=== PATIENT | male | born 1955 | race African-American/Black ===

== ENCOUNTER 2017-10-24 06:43 | Emergency (ER) | payer MEDICARE, MEDICAID ==
[~2017-10-24] VITALS: Ht 182.9 cm; Wt 100.0 kg
[~2017-10-24 06:43] MED LIST: ACET1TAB14; AMLO10TA80; AMLO10TA80 PO; AMLODIPINE; ASPI-1073 PO; ATOR40TA70; BENA40TA3; BENAZEPRIL; CHLO25TA2; FLOV44; FLUTICASONE PROPION; HYDR-3927 GT; HYDR-3927 PO; LORA-458 PO; LORA1TAB; LORA1TAB PO; P20 PO; PROAIR HFA INH; PSEU120T84; SIMV40TA5 PO; SITA100T11 PO; TAMS0.4C31 PO
[2017-10-24 06:50] VITALS: BP 138/94
[2017-10-24 07:38] LABS: BASOPHILS % 0.9 % (0.0-2.0); EOSINOPHILS % 1.3 % (0.0-5.0); HEMATOCRIT. 44.9 % (42.0-52.0); HEMOGLOBIN. 14.8 g/dL (14.0-18.0); LYMPHOCYTES % 26.1 % (20.0-50.0); MEAN CORPUSCULAR HEMOGLOBIN 27.5 pg (28.0-32.0); MEAN CORPUSCULAR VOLUME 83.2 fL (80.0-94.0); MEAN PLATELET VOLUME 9.1 fl (7.4-10.4); MONOCYTES % 8.4 % (2.0-8.0); NEUTROPHILS % 63.3 % (40.0-76.0); PLATELET 159 x1000/uL (130-400); RED CELL DISTRIBUTION WIDTH 15.9 % (11.6-14.6)
[2017-10-24 07:46] LABS: CHLORIDE 112 mEq/L (98-107)
[2017-10-24] MEDS ORDERED: POTASSIUM CHLORIDE 20MEQ TABLET SR PO ONE (08:45)
== END 2017-10-24 12:55 | disposition home or self-care (01) ==
LOC: ER 07:47
DX: F41.9 Anxiety disorder, unspecified (principal); R05 Cough; R45.1 Restlessness and agitation; E11.9 Type 2 diabetes mellitus without complications; E78.00 Pure hypercholesterolemia, unspecified; E87.6 Hypokalemia; F17.200 Nicotine dependence, unspecified, uncomplicated; F12.10 Cannabis abuse, uncomplicated; I10 Essential (primary) hypertension; Z79.82 Long term (current) use of aspirin; Z98.890 Other specified postprocedural states
CPT/HCPCS: 36415; 71045; 80048; 85025; 93005; 99285

== ENCOUNTER 2018-11-07 10:07 | Emergency (ER) | payer MEDICARE, MEDICAID ==
[~2018-11-07] VITALS: Ht 182.9 cm; Wt 93.7 kg
[~2018-11-07 10:07] MED LIST changes: -BENA40TA3; +BENA40TA9
[2018-11-07] MEDS ORDERED: ACETAMINOPHEN 325MG TABLET PO ONE (12:30)
[2018-11-07] MEDS ORDERED: ACETAMINOPHEN 325MG TABLET ONE (12:51)
[2018-11-07 15:02] VITALS: BP 139/92
== END 2018-11-07 15:10 | disposition home or self-care (01) ==
LOC: ER 10:07
DX: S09.8XXA Other specified injuries of head, initial encounter (principal); Y00.XXXA Assault by blunt object, initial encounter; Y93.89 Activity, other specified; Y92.096 Garden or yard of other non-institutional residence as the place of occurrence of the external cause
CPT/HCPCS: 99284

== ENCOUNTER 2019-05-24 12:14 | Emergency (ER) | payer MEDICARE, MEDICAID ==
[~2019-05-24] VITALS: Ht 182.9 cm; Wt 98.0 kg
[2019-05-24 13:19] LABS: BASOPHILS % 1.1 % (0.0-2.0); EOSINOPHILS % 1.9 % (0.0-5.0); HEMATOCRIT. 44.6 % (42.0-52.0); HEMOGLOBIN. 14.4 g/dL (14.0-18.0); LYMPHOCYTES % 29.5 % (20.0-50.0); MEAN CORPUSCULAR HEMOGLOBIN 27.3 pg (28.0-32.0); MEAN CORPUSCULAR VOLUME 84.6 fL (80.0-94.0); MEAN PLATELET VOLUME 8.9 fl (7.4-10.4); MONOCYTES % 8.5 % (2.0-8.0); PLATELET 181 x1000/uL (130-400); RED BLOOD CELL COUNT 5.27 mill/uL (4.7-6.1); RED CELL DISTRIBUTION WIDTH 15.4 % (11.6-14.6)
[2019-05-24 13:27] LABS: CHLORIDE 109 mEq/L (98-107)
[2019-05-24] MEDS ORDERED: CLONIDINE 0.1MG TABLET PO ONE (14:15)
[2019-05-24 15:45] VITALS: BP 184/98
== END 2019-05-24 16:00 | disposition home or self-care (01) ==
LOC: ER 12:45
DX: F41.0 Panic disorder [episodic paroxysmal anxiety] (principal); I10 Essential (primary) hypertension; R73.9 Hyperglycemia, unspecified
CPT/HCPCS: 36415; 71045; 84484; 93005; 99284

== ENCOUNTER 2020-07-16 03:17 | Inpatient (IN) | payer MEDICARE, MEDICAID ==
[~2020-07-16] VITALS: Ht 218.4 cm; Wt 81.6 kg
[~2020-07-16 03:17] MED LIST changes: -LORA-458 PO; +LORA10TA60 PO; +SIMV-46 PO; -SIMV40TA5 PO
[2020-07-16] MEDS ORDERED: CEFTRIAXONE 1 G PREMIX 50 ML IV ONE (03:30)
[2020-07-16] MEDS ORDERED: ALBUTEROL 6.7GM HFA INHALER ORI ONE ×3 (03:30)
[2020-07-16] MEDS ORDERED: DEXAMETHASONE 4MG/ML 1ML VIAL IV ONE (03:30)
[2020-07-16] MEDS ORDERED: AZITHROMYCIN 500 MG in DEXT 5% WATER 250 ML IV ONE (03:30)
[2020-07-16] MEDS ORDERED: ASPIRIN 325MG EC TABLET PO ONE (03:45)
[2020-07-16] MEDS ORDERED: DILTIAZEM HCL 5MG/ML 5ML VIAL IV ONE (03:45)
[2020-07-16 04:37] LABS: BG BASE EXCESS 1.7 mmol/L (-2.0-2.0); BG CARBOXYHEMOGLOBIN 1.1 % (0.5-1.5); BG DEOXYHEMOGLOBIN 1.8 % (0.0-5.0); BG FRACTION INSPIRED OXYGEN 50; BG HCO3 ACT 25.2 mmol/L (22.0-26.0); BG METHEMOGLOBIN 0.2 % (0.0-1.5); BG OXYGEN SATURATION 98.2 % (92.0-98.5); BG OXYHEMOGLOBIN 96.9 % (94.0-97.0); BG PCO2 36.1 mmHg (35.0-45.0); BG PH 7.461 (7.350-7.450); BG PO2 114.3 mmHg (75.0-100.0); BG TOTAL HEMOGLOBIN 14.9 g/dL (12.0-18.0); BG TOTAL RESPIRATORY RATE 30 b/min; BG VENT MODE MASK - BIPAP
[2020-07-16 04:43] LABS: HEMATOCRIT. 42.8 % (42.0-52.0); MEAN CORPUSCULAR HEMOGLOBIN 27.4 pg (28.0-32.0); MEAN CORPUSCULAR VOLUME 83.8 fL (80.0-94.0); MEAN PLATELET VOLUME 9.3 fl (7.4-10.4); PLATELET 121 x1000/uL (130-400); RED BLOOD CELL COUNT 5.11 mill/uL (4.7-6.1); RED CELL DISTRIBUTION WIDTH 14.9 % (11.6-14.6)
[2020-07-16 04:45] LABS: CHLORIDE 109 mEq/L (98-107)
[2020-07-16 04:47] LABS: INR 1.2; PROTHROMBIN TIME 12.1 sec (9.6-11.0)
[2020-07-16] MEDS ORDERED: POTASSIUM CHLORIDE 20MEQ TABLET SR PO ONE ×2 (05:15)
[2020-07-16] MEDS ORDERED: ENOXAPARIN 100MG/ML SYR SUBCUT ONE (05:45)
[2020-07-16 07:09] LABS: PLATELET ESTIMATE NORMAL
[2020-07-16] MEDS: LORAZEPAM 2MG/ML CPJ IV PRN (11:36)
[2020-07-16 11:40] LABS: CLARITY URINE CLEAR (CLEAR); COLOR URINE DARK YELLOW (YELLOW); KETONES URINE TRACE (NEGATIVE); LEUKOCYTE ESTERASE URINE NEGATIVE (NEGATIVE); NITRITE URINE NEGATIVE (NEGATIVE); OCCULT BLOOD URINE NEGATIVE (NEGATIVE); PROTEIN URINE 2+ (NEGATIVE); SPECIFIC GRAVITY URINE 1.034 (1.005-1.030)
[2020-07-16 17:28] LABS: T4 FREE 1.33 ng/dL (0.76-1.46)
[2020-07-16] MEDS: CLONIDINE 0.1MG TABLET PO PRN (20:12)
[2020-07-16] MEDS: ACETAMINOPHEN 325MG TABLET PO PRN (20:12)
[2020-07-17 01:11] LABS: CREATINE KINASE 118 IU/L (39-308)
[2020-07-17 01:13] LABS: CREATINE KINASE MB FRACTION < 1.0 ng/mL (0.5-3.6)
[2020-07-17] MEDS: LORAZEPAM 2MG/ML CPJ IV PRN ×3 (01:38→18:45)
[2020-07-17] MEDS: ACETAMINOPHEN 325MG TABLET PO PRN (04:28)
[2020-07-17] MEDS: CLONIDINE 0.1MG TABLET PO PRN ×2 (04:28→10:35)
[2020-07-17] MEDS: ALBUTEROL 6.7GM HFA INHALER ORI PRN (05:28)
[2020-07-17] MEDS ORDERED: CEFTRIAXONE SODIUM 1 G/VIAL ONE (06:12)
[2020-07-17] MEDS: CEFTRIAXONE 1,000 MG in DEXTROSE 5% WATER 50 ML IV SCH (06:20)
[2020-07-17 06:35] LABS: CREATINE KINASE 108 IU/L (39-308)
[2020-07-17 06:36] LABS: CREATINE KINASE MB FRACTION < 1.0 ng/mL (0.5-3.6)
[2020-07-17 07:33] LABS: BG BASE EXCESS 2.3 mmol/L (-2.0-2.0); BG DEOXYHEMOGLOBIN 5.1 % (0.0-5.0); BG HCO3 ACT 25.9 mmol/L (22.0-26.0); BG METHEMOGLOBIN 0.3 % (0.0-1.5); BG OXYGEN SATURATION 94.8 % (92.0-98.5); BG OXYHEMOGLOBIN 93.6 % (94.0-97.0); BG PCO2 36.9 mmHg (35.0-45.0); BG PH 7.464 (7.350-7.450); BG PO2 71.9 mmHg (75.0-100.0); BG SAMPLE SITE LEFT RADIAL; BG TOTAL HEMOGLOBIN 13.9 g/dL (12.0-18.0); BG VENT MODE MASK - BIPAP
[2020-07-17] MEDS ORDERED: ONDANSETRON HCL 4MG/2ML INJ IV PRN (08:15)
[2020-07-17] MEDS ORDERED: HYDROCODONE/ACETAMINOPHEN 5/325MG TABLET PO PRN (08:15)
[2020-07-17] MEDS ORDERED: DEXTROSE 50% WATER 50ML SYRINGE IV PRN ×2 (08:15)
[2020-07-17] MEDS: AZITHROMYCIN 500 MG in DEXT 5% WATER 250 ML IV SCH (09:00)
[2020-07-17] MEDS: ENOXAPARIN 40MG/0.4ML SYR SUBCUT SCH (09:30)
[2020-07-17 09:46] LABS: CHLORIDE 109 mEq/L (98-107)
[2020-07-17] MEDS: DEXAMETHASONE 10 MG/ML VIAL IV SCH (09:50)
[2020-07-17] MEDS: BLOOD SUGAR DIAGNOSTIC STRIP TEST SCH ×3 (11:30→21:30)
[2020-07-17] MEDS: INSULIN LISPRO 100 UNITS/ML SUBCUT SCH ×3 (12:00→21:40)
[2020-07-18] MEDS ORDERED: LORAZEPAM 2MG/ML CPJ IV PRN (05:00)
[2020-07-18] MEDS: CEFTRIAXONE 1,000 MG in DEXTROSE 5% WATER 50 ML IV SCH (06:00)
[2020-07-18 06:17] LABS: HEMATOCRIT. 42.3 % (42.0-52.0); HEMOGLOBIN. 13.9 g/dL (14.0-18.0); MEAN CORPUSCULAR HEMOGLOBIN 27.4 pg (28.0-32.0); MEAN CORPUSCULAR VOLUME 83.4 fL (80.0-94.0); MEAN PLATELET VOLUME 8.3 fl (7.4-10.4); PLATELET 167 x1000/uL (130-400); RED BLOOD CELL COUNT 5.07 mill/uL (4.7-6.1); RED CELL DISTRIBUTION WIDTH 14.9 % (11.6-14.6)
[2020-07-18] MEDS: LORAZEPAM 2MG/ML CPJ IV PRN ×3 (06:23→21:50)
[2020-07-18 06:25] LABS: CHLORIDE 109 mEq/L (98-107)
[2020-07-18] MEDS: BLOOD SUGAR DIAGNOSTIC STRIP TEST SCH ×4 (06:30→21:00)
[2020-07-18 06:32] LABS: PHOSPHORUS 2.2 mg/dL (2.5-4.9)
[2020-07-18 06:33] LABS: LDL CHOLESTEROL 58 mg/dL (5-100)
[2020-07-18 06:34] LABS: HDL CHOLESTEROL 37 mg/dL (40-59)
[2020-07-18 06:35] LABS: T4 FREE 1.44 ng/dL (0.76-1.46)
[2020-07-18] MEDS: INSULIN LISPRO 100 UNITS/ML SUBCUT SCH ×4 (07:00→21:00)
[2020-07-18] MEDS: ENOXAPARIN 40MG/0.4ML SYR SUBCUT SCH (09:00)
[2020-07-18] MEDS: DEXAMETHASONE 10 MG/ML VIAL IV SCH (09:00)
[2020-07-18] MEDS: AZITHROMYCIN 500 MG in DEXT 5% WATER 250 ML IV SCH (09:00)
[2020-07-18 09:20] LABS: BG BASE EXCESS 1.9 mmol/L (-2.0-2.0); BG CARBOXYHEMOGLOBIN 1.1 % (0.5-1.5); BG DEOXYHEMOGLOBIN 5.1 % (0.0-5.0); BG FRACTION INSPIRED OXYGEN 100; BG METHEMOGLOBIN 0.1 % (0.0-1.5); BG OXYGEN SATURATION 94.8 % (92.0-98.5); BG OXYHEMOGLOBIN 93.7 % (94.0-97.0); BG PCO2 38.9 mmHg (35.0-45.0); BG PH 7.443 (7.350-7.450); BG PO2 71.2 mmHg (75.0-100.0); BG SAMPLE SITE LEFT BRACHIAL; BG TOTAL HEMOGLOBIN 14.1 g/dL (12.0-18.0); BG TOTAL RESPIRATORY RATE 41 b/min; BG VENT MODE MASK - BIPAP
[2020-07-18 10:31] LABS: PLATELET ESTIMATE NORMAL
[2020-07-19] MEDS: CEFTRIAXONE 1,000 MG in DEXTROSE 5% WATER 50 ML IV SCH (05:52)
[2020-07-19] MEDS: BLOOD SUGAR DIAGNOSTIC STRIP TEST SCH ×4 (08:30→21:24)
[2020-07-19] MEDS: INSULIN LISPRO 100 UNITS/ML SUBCUT SCH ×4 (08:30→21:24)
[2020-07-19] MEDS: ENOXAPARIN 40MG/0.4ML SYR SUBCUT SCH (09:12)
[2020-07-19] MEDS: DEXAMETHASONE 10 MG/ML VIAL IV SCH (09:12)
[2020-07-19 09:26] LABS: BG BASE EXCESS 0.8 mmol/L (-2.0-2.0); BG CARBOXYHEMOGLOBIN 0.9 % (0.5-1.5); BG DEOXYHEMOGLOBIN 1.2 % (0.0-5.0); BG FRACTION INSPIRED OXYGEN 100; BG HCO3 ACT 24.8 mmol/L (22.0-26.0); BG METHEMOGLOBIN 0.3 % (0.0-1.5); BG OXYGEN SATURATION 98.8 % (92.0-98.5); BG OXYHEMOGLOBIN 97.6 % (94.0-97.0); BG PCO2 37.9 mmHg (35.0-45.0); BG PH 7.434 (7.350-7.450); BG PO2 149.6 mmHg (75.0-100.0); BG SAMPLE SITE RIGHT RADIAL; BG TOTAL HEMOGLOBIN 14.3 g/dL (12.0-18.0); BG TOTAL RESPIRATORY RATE 36 b/min; BG VENT MODE MASK - BIPAP
[2020-07-19 09:46] LABS: HEMATOCRIT. 39.9 % (42.0-52.0); HEMOGLOBIN. 13.3 g/dL (14.0-18.0); MEAN CORPUSCULAR HEMOGLOBIN 27.7 pg (28.0-32.0); MEAN CORPUSCULAR VOLUME 83.5 fL (80.0-94.0); MEAN PLATELET VOLUME 8.7 fl (7.4-10.4); PLATELET 189 x1000/uL (130-400); RED BLOOD CELL COUNT 4.78 mill/uL (4.7-6.1)
[2020-07-19] MEDS: ALBUTEROL 6.7GM HFA INHALER ORI PRN ×2 (09:50→15:56)
[2020-07-19] MEDS: AZITHROMYCIN 500 MG in DEXT 5% WATER 250 ML IV SCH (10:00)
[2020-07-19 10:38] LABS: CHLORIDE 108 mEq/L (98-107)
[2020-07-19 11:04] LABS: PLATELET ESTIMATE NORMAL
[2020-07-19] MEDS: LORAZEPAM 2MG/ML CPJ IV PRN (14:34)
[2020-07-20] MEDS: LORAZEPAM 2MG/ML CPJ IV PRN ×2 (02:46→12:38)
[2020-07-20] MEDS: CEFTRIAXONE 1,000 MG in DEXTROSE 5% WATER 50 ML IV SCH (06:28)
[2020-07-20] MEDS: BLOOD SUGAR DIAGNOSTIC STRIP TEST SCH ×4 (06:30→21:00)
[2020-07-20 06:38] LABS: BG BASE EXCESS 1.1 mmol/L (-2.0-2.0); BG CARBOXYHEMOGLOBIN 0.9 % (0.5-1.5); BG DEOXYHEMOGLOBIN 0.9 % (0.0-5.0); BG FRACTION INSPIRED OXYGEN 100; BG METHEMOGLOBIN 0.2 % (0.0-1.5); BG OXYGEN SATURATION 99.1 % (92.0-98.5); BG PCO2 37.5 mmHg (35.0-45.0); BG PH 7.442 (7.350-7.450); BG PO2 212.6 mmHg (75.0-100.0); BG SAMPLE SITE RIGHT BRACHIAL; BG TOTAL HEMOGLOBIN 14.1 g/dL (12.0-18.0); BG VENT MODE MASK - BIPAP
[2020-07-20] MEDS: ENOXAPARIN 40MG/0.4ML SYR SUBCUT SCH (09:00)
[2020-07-20] MEDS: DEXAMETHASONE 10 MG/ML VIAL IV SCH (11:19)
[2020-07-20] MEDS: AMLODIPINE 10MG TABLET PO SCH (11:20)
[2020-07-20] MEDS: AZITHROMYCIN 500 MG in DEXT 5% WATER 250 ML IV SCH (11:32)
[2020-07-20] MEDS: INSULIN LISPRO 100 UNITS/ML SUBCUT SCH (21:00)
[2020-07-20] MEDS: DEXT 5%/0.45% NACL KCL 20MEQ/L 1,000 ML IV SCH (23:49)
[2020-07-21] MEDS: LORAZEPAM 2MG/ML CPJ IV PRN (01:46)
[2020-07-21] MEDS: CLONIDINE 0.1MG TABLET PO PRN (05:02)
[2020-07-21] MEDS: INSULIN LISPRO 100 UNITS/ML SUBCUT SCH ×5 (07:00→18:35)
[2020-07-21 08:53] LABS: BG BASE EXCESS 3.7 mmol/L (-2.0-2.0); BG CARBOXYHEMOGLOBIN 0.8 % (0.5-1.5); BG DEOXYHEMOGLOBIN 1.1 % (0.0-5.0); BG FRACTION INSPIRED OXYGEN 80; BG HCO3 ACT 28.4 mmol/L (22.0-26.0); BG METHEMOGLOBIN 0.2 % (0.0-1.5); BG OXYGEN SATURATION 98.9 % (92.0-98.5); BG OXYHEMOGLOBIN 97.9 % (94.0-97.0); BG PCO2 42.8 mmHg (35.0-45.0); BG PH 7.439 (7.350-7.450); BG PO2 194.6 mmHg (75.0-100.0); BG SAMPLE SITE RIGHT BRACHIAL; BG TOTAL HEMOGLOBIN 13.5 g/dL (12.0-18.0); BG TOTAL RESPIRATORY RATE 23 b/min; BG VENT MODE MASK - BIPAP
[2020-07-21 09:10] VITALS: BP 162/104
[2020-07-21] MEDS: ENOXAPARIN 40MG/0.4ML SYR SUBCUT SCH (11:01)
[2020-07-21] MEDS: AMLODIPINE 10MG TABLET PO SCH (11:01)
[2020-07-21] MEDS: DEXAMETHASONE 10 MG/ML VIAL IV SCH (11:01)
[2020-07-21 12:00] VITALS: BP 157/96
[2020-07-21 12:15] VITALS: BP 162/104
[2020-07-21] MEDS ORDERED: PNEUMOCOCCAL 23-VAL P-SAC VAC 0.5 ML IM ONE (13:00)
[2020-07-21] MEDS: HYDRALAZINE HCL 100MG TABLET PO SCH ×2 (14:21→21:20)
[2020-07-21] MEDS: DEXT 5%/0.45% NACL KCL 20MEQ/L 1,000 ML IV SCH (14:24)
[2020-07-21 16:00] VITALS: BP 146/88
[2020-07-21 18:25] LABS: HEMATOCRIT. 42.5 % (42.0-52.0); HEMOGLOBIN. 13.5 g/dL (14.0-18.0); MEAN CORPUSCULAR HEMOGLOBIN 26.6 pg (28.0-32.0); MEAN CORPUSCULAR VOLUME 83.9 fL (80.0-94.0); MEAN PLATELET VOLUME 8.4 fl (7.4-10.4); PLATELET 150 x1000/uL (130-400); RED BLOOD CELL COUNT 5.07 mill/uL (4.7-6.1); RED CELL DISTRIBUTION WIDTH 15.2 % (11.6-14.6)
[2020-07-21 18:36] LABS: CHLORIDE 114 mEq/L (98-107)
[2020-07-21] MEDS: ACETAMINOPHEN 325MG TABLET PO PRN (18:36)
[2020-07-21 19:50] LABS: PLATELET ESTIMATE NORMAL
[2020-07-21 20:00] VITALS: BP 135/79
[2020-07-21] MEDS: LORAZEPAM 2MG/ML CPJ IM PRN (23:18)
[2020-07-22] VITALS: BP 130/86
[2020-07-22 04:00] VITALS: BP 140/79
[2020-07-22] MEDS: BLOOD SUGAR DIAGNOSTIC STRIP TEST SCH ×4 (05:55→21:06)
[2020-07-22] MEDS: HYDRALAZINE HCL 100MG TABLET PO SCH ×3 (06:01→21:47)
[2020-07-22] MEDS: DEXT 5%/0.45% NACL KCL 20MEQ/L 1,000 ML IV SCH ×2 (06:28→17:59)
[2020-07-22 08:00] VITALS: BP 137/82
[2020-07-22 09:18] LABS: BG BASE EXCESS 0.1 mmol/L (-2.0-2.0); BG CARBOXYHEMOGLOBIN 1.1 % (0.5-1.5); BG HCO3 ACT 24.2 mmol/L (22.0-26.0); BG METHEMOGLOBIN 0.3 % (0.0-1.5); BG OXYGEN SATURATION 85.8 % (92.0-98.5); BG OXYHEMOGLOBIN 84.6 % (94.0-97.0); BG PCO2 37.7 mmHg (35.0-45.0); BG PH 7.425 (7.350-7.450); BG PO2 48.3 mmHg (75.0-100.0); BG SAMPLE SITE RIGHT RADIAL; BG TOTAL HEMOGLOBIN 14.5 g/dL (12.0-18.0)
[2020-07-22] MEDS: AMLODIPINE 10MG TABLET PO SCH (17:51)
[2020-07-22] MEDS: ENOXAPARIN 40MG/0.4ML SYR SUBCUT SCH (17:51)
[2020-07-22] MEDS: DEXAMETHASONE 10 MG/ML VIAL IV SCH (17:59)
[2020-07-22 20:00] VITALS: BP 140/80
[2020-07-22] MEDS: INSULIN LISPRO 100 UNITS/ML SUBCUT SCH (21:50)
[2020-07-22] MEDS: LORAZEPAM 2MG/ML CPJ IM PRN (21:52)
[2020-07-23] VITALS: BP 150/90
[2020-07-23] MEDS: DEXT 5%/0.45% NACL KCL 20MEQ/L 1,000 ML IV SCH ×3 (01:31→22:00)
[2020-07-23 04:00] VITALS: BP 170/98
[2020-07-23] MEDS: HYDRALAZINE HCL 100MG TABLET PO SCH ×3 (06:17→22:00)
[2020-07-23] MEDS: CLONIDINE 0.1MG TABLET PO PRN (06:17)
[2020-07-23] MEDS: ACETAMINOPHEN 325MG TABLET PO PRN (06:27)
[2020-07-23] MEDS: LORAZEPAM 2MG/ML CPJ IM PRN (06:27)
[2020-07-23] MEDS: BLOOD SUGAR DIAGNOSTIC STRIP TEST SCH ×4 (06:28→21:00)
[2020-07-23] MEDS: INSULIN LISPRO 100 UNITS/ML SUBCUT SCH ×4 (06:28→22:18)
[2020-07-23 08:00] VITALS: BP 160/88
[2020-07-23] MEDS: DEXAMETHASONE 10 MG/ML VIAL IV SCH (09:00)
[2020-07-23] MEDS: AMLODIPINE 10MG TABLET PO SCH (10:14)
[2020-07-23] MEDS: ENOXAPARIN 40MG/0.4ML SYR SUBCUT SCH (10:14)
[2020-07-23 12:00] VITALS: BP 164/88
[2020-07-23] MEDS: HYDROCHLOROTHIAZIDE 25MG TABLET PO SCH (13:51)
[2020-07-23 16:00] VITALS: BP 146/90
[2020-07-23 20:00] VITALS: BP 154/98
[2020-07-24] VITALS: BP 138/89
[2020-07-24] MEDS: LORAZEPAM 2MG/ML CPJ IM PRN ×3 (00:06→23:22)
[2020-07-24] MEDS: ALBUTEROL 6.7GM HFA INHALER ORI SCH ×4 (02:44→23:22)
[2020-07-24 04:00] VITALS: BP 140/91
[2020-07-24] MEDS: DEXT 5%/0.45% NACL KCL 20MEQ/L 1,000 ML IV SCH (06:24)
[2020-07-24] MEDS: HYDRALAZINE HCL 100MG TABLET PO SCH ×3 (06:24→22:00)
[2020-07-24] MEDS: BLOOD SUGAR DIAGNOSTIC STRIP TEST SCH ×4 (07:30→21:59)
[2020-07-24 08:16] VITALS: BP 124/77
[2020-07-24] MEDS: DEXAMETHASONE 10 MG/ML VIAL IV SCH (09:01)
[2020-07-24] MEDS: ACETAMINOPHEN 325MG TABLET PO PRN (09:02)
[2020-07-24] MEDS: HYDROCHLOROTHIAZIDE 25MG TABLET PO SCH (09:02)
[2020-07-24] MEDS: ENOXAPARIN 40MG/0.4ML SYR SUBCUT SCH (09:02)
[2020-07-24] MEDS: NIFEDIPINE XL 30MG TAB PO SCH (09:03)
[2020-07-24] MEDS: INSULIN LISPRO 100 UNITS/ML SUBCUT SCH ×4 (09:04→23:23)
[2020-07-24 12:05] VITALS: BP 144/86
[2020-07-24 16:20] VITALS: BP 155/92
[2020-07-24 20:00] VITALS: BP 123/77
[2020-07-25 00:34] VITALS: BP 130/80
[2020-07-25 04:00] VITALS: BP 138/82
[2020-07-25] MEDS: HYDRALAZINE HCL 100MG TABLET PO SCH ×3 (05:20→21:54)
[2020-07-25] MEDS: ACETAMINOPHEN 325MG TABLET PO PRN ×2 (05:20→13:22)
[2020-07-25] MEDS: ALBUTEROL 6.7GM HFA INHALER ORI SCH ×4 (06:49→21:53)
[2020-07-25] MEDS: BLOOD SUGAR DIAGNOSTIC STRIP TEST SCH ×4 (07:28→21:22)
[2020-07-25 08:00] VITALS: BP 131/84
[2020-07-25] MEDS: LORAZEPAM 2MG/ML CPJ IM PRN ×2 (08:03→16:10)
[2020-07-25] MEDS: INSULIN LISPRO 100 UNITS/ML SUBCUT SCH ×4 (08:04→21:53)
[2020-07-25 08:39] LABS: BASOPHILS % 0.8 % (0.0-2.0); EOSINOPHILS % 0.6 % (0.0-5.0); HEMATOCRIT. 40.8 % (42.0-52.0); HEMOGLOBIN. 13.2 g/dL (14.0-18.0); LYMPHOCYTES % 9.5 % (20.0-50.0); MEAN CORPUSCULAR HEMOGLOBIN 26.7 pg (28.0-32.0); MEAN CORPUSCULAR VOLUME 82.4 fL (80.0-94.0); MONOCYTES % 3.1 % (2.0-8.0); PLATELET 161 x1000/uL (130-400); RED BLOOD CELL COUNT 4.95 mill/uL (4.7-6.1); RED CELL DISTRIBUTION WIDTH 15.5 % (11.6-14.6)
[2020-07-25 08:42] LABS: CHLORIDE 105 mEq/L (98-107)
[2020-07-25] MEDS: HYDROCHLOROTHIAZIDE 25MG TABLET PO SCH (09:05)
[2020-07-25] MEDS: ENOXAPARIN 40MG/0.4ML SYR SUBCUT SCH (09:06)
[2020-07-25] MEDS: NIFEDIPINE XL 30MG TAB PO SCH (09:06)
[2020-07-25] MEDS: DEXAMETHASONE 10 MG/ML VIAL IV SCH (09:06)
[2020-07-25 12:00] VITALS: BP 148/90
[2020-07-25 16:00] VITALS: BP 133/81
[2020-07-25 20:00] VITALS: BP 137/86
[2020-07-26] VITALS: BP 136/83
[2020-07-26] MEDS: ALBUTEROL 6.7GM HFA INHALER ORI SCH ×4 (00:30→18:30)
[2020-07-26 04:00] VITALS: BP 145/84
[2020-07-26] MEDS: HYDRALAZINE HCL 100MG TABLET PO SCH ×3 (05:01→22:09)
[2020-07-26] MEDS: ACETAMINOPHEN 325MG TABLET PO PRN (05:01)
[2020-07-26] MEDS: BLOOD SUGAR DIAGNOSTIC STRIP TEST SCH ×4 (06:13→21:00)
[2020-07-26] MEDS: INSULIN LISPRO 100 UNITS/ML SUBCUT SCH ×4 (06:13→22:40)
[2020-07-26 08:00] VITALS: BP 118/70
[2020-07-26] MEDS: HYDROCHLOROTHIAZIDE 25MG TABLET PO SCH (10:04)
[2020-07-26] MEDS: DEXAMETHASONE 10 MG/ML VIAL IV SCH (10:04)
[2020-07-26] MEDS: ENOXAPARIN 40MG/0.4ML SYR SUBCUT SCH (10:05)
[2020-07-26] MEDS: NIFEDIPINE XL 30MG TAB PO SCH (10:05)
[2020-07-26 12:00] VITALS: BP 141/76
[2020-07-26 16:00] VITALS: BP 107/68
[2020-07-26 20:00] VITALS: BP 143/86
[2020-07-26] MEDS: INSULIN GLARGINE UD 100 UNITS/ML SYR SUBCUT SCH (22:40)
[2020-07-27] VITALS: BP_SYST 139; BP_DIAS 82; BP_DIAS 88
[2020-07-27] MEDS: ALBUTEROL 6.7GM HFA INHALER ORI SCH ×4 (02:23→18:36)
[2020-07-27 04:00] VITALS: BP 138/89
[2020-07-27] MEDS: BLOOD SUGAR DIAGNOSTIC STRIP TEST SCH ×4 (06:27→21:46)
[2020-07-27] MEDS: HYDRALAZINE HCL 100MG TABLET PO SCH ×3 (06:28→21:38)
[2020-07-27] MEDS: INSULIN LISPRO 100 UNITS/ML SUBCUT SCH ×4 (06:33→21:34)
[2020-07-27 08:00] VITALS: BP 143/91
[2020-07-27 08:39] LABS: HEMOGLOBIN 13.9 g/dL (14.0-18.0); MEAN CORPUSCULAR HEMOGLOBIN 27.5 pg (28.0-32.0); MEAN CORPUSCULAR VOLUME 82.8 fL (80.0-94.0); PLATELET 253 x1000/uL (130-400); RED BLOOD CELL COUNT 5.08 mill/uL (4.7-6.1); RED CELL DISTRIBUTION WIDTH 15.5 % (11.6-14.6)
[2020-07-27 09:05] LABS: CHLORIDE 104 mEq/L (98-107)
[2020-07-27] MEDS: DEXAMETHASONE 10 MG/ML VIAL IV SCH (09:40)
[2020-07-27] MEDS: ENOXAPARIN 40MG/0.4ML SYR SUBCUT SCH (09:41)
[2020-07-27] MEDS: NIFEDIPINE XL 30MG TAB PO SCH (09:41)
[2020-07-27] MEDS: HYDROCHLOROTHIAZIDE 25MG TABLET PO SCH (09:41)
[2020-07-27] MEDS: INSULIN GLARGINE UD 100 UNITS/ML SYR SUBCUT SCH ×2 (09:54→21:35)
[2020-07-27] MEDS: ASPIRIN 81MG TABLET PO SCH (13:46)
[2020-07-27 16:00] VITALS: BP 145/92
[2020-07-27] MEDS: LORAZEPAM 1MG TABLET PO PRN (17:45)
[2020-07-27 20:00] VITALS: BP 125/78
[2020-07-27] MEDS: ACETAMINOPHEN 325MG TABLET PO PRN (21:51)
[2020-07-28] VITALS: BP 120/80
[2020-07-28] MEDS: ALBUTEROL 6.7GM HFA INHALER ORI SCH ×4 (01:00→19:42)
[2020-07-28 04:00] VITALS: BP 138/81
[2020-07-28] MEDS: HYDRALAZINE HCL 100MG TABLET PO SCH ×3 (05:40→22:17)
[2020-07-28] MEDS: BLOOD SUGAR DIAGNOSTIC STRIP TEST SCH ×4 (06:42→21:00)
[2020-07-28] MEDS: INSULIN LISPRO 100 UNITS/ML SUBCUT SCH ×4 (06:43→22:34)
[2020-07-28 08:00] VITALS: BP 129/72
[2020-07-28] MEDS: ENOXAPARIN 40MG/0.4ML SYR SUBCUT SCH (09:32)
[2020-07-28] MEDS: NIFEDIPINE XL 30MG TAB PO SCH (09:33)
[2020-07-28] MEDS: LORAZEPAM 1MG TABLET PO PRN (09:33)
[2020-07-28] MEDS: ASPIRIN 81MG TABLET PO SCH (09:33)
[2020-07-28] MEDS: HYDROCHLOROTHIAZIDE 25MG TABLET PO SCH (09:33)
[2020-07-28] MEDS: METFORMIN HCL 850MG TABLET PO SCH ×2 (09:33→19:35)
[2020-07-28] MEDS: INSULIN GLARGINE UD 100 UNITS/ML SYR SUBCUT SCH ×2 (09:47→22:09)
[2020-07-28 12:00] VITALS: BP 109/79
[2020-07-28 16:00] VITALS: BP 122/78
[2020-07-28] MEDS: PIPERACILLIN/TAZOBACTAM 3.375 G in DEXT 5% WATER 100 ML IV SCH ×2 (16:42→22:08)
[2020-07-28 19:23] LABS: BG BASE EXCESS 1.9 mmol/L (-2.0-2.0); BG CARBOXYHEMOGLOBIN 1.5 % (0.5-1.5); BG DEOXYHEMOGLOBIN 15.4 % (0.0-5.0); BG FRACTION INSPIRED OXYGEN 21; BG HCO3 ACT 25.3 mmol/L (22.0-26.0); BG METHEMOGLOBIN 0.2 % (0.0-1.5); BG OXYGEN SATURATION 84.3 % (92.0-98.5); BG OXYHEMOGLOBIN 82.9 % (94.0-97.0); BG PH 7.465 (7.350-7.450); BG SAMPLE SITE LEFT RADIAL; BG VENT MODE ROOM AIR
[2020-07-28 20:00] VITALS: BP 133/71
[2020-07-29] VITALS: BP 140/70
[2020-07-29] MEDS: ALBUTEROL 6.7GM HFA INHALER ORI SCH ×2 (01:00→14:41)
[2020-07-29 04:00] VITALS: BP 146/95
[2020-07-29] MEDS: PIPERACILLIN/TAZOBACTAM 3.375 G in DEXT 5% WATER 100 ML IV SCH ×3 (04:16→15:10)
[2020-07-29] MEDS: BLOOD SUGAR DIAGNOSTIC STRIP TEST SCH ×4 (07:08→21:00)
[2020-07-29] MEDS: HYDRALAZINE HCL 100MG TABLET PO SCH ×2 (07:08→15:09)
[2020-07-29 07:55] LABS: BASOPHILS % 0.6 % (0.0-2.0); EOSINOPHILS % 0.7 % (0.0-5.0); HEMOGLOBIN. 13.8 g/dL (14.0-18.0); LYMPHOCYTES % 8.7 % (20.0-50.0); MEAN CORPUSCULAR VOLUME 82.4 fL (80.0-94.0); MONOCYTES % 5.4 % (2.0-8.0); NEUTROPHILS % 84.6 % (40.0-76.0); PLATELET 305 x1000/uL (130-400); RED CELL DISTRIBUTION WIDTH 15.3 % (11.6-14.6)
[2020-07-29] MEDS: INSULIN LISPRO 100 UNITS/ML SUBCUT SCH ×3 (08:21→19:32)
[2020-07-29 09:43] LABS: CHLORIDE 103 mEq/L (98-107)
[2020-07-29 10:13] VITALS: BP 130/18
[2020-07-29] MEDS: METFORMIN HCL 850MG TABLET PO SCH ×2 (10:36→19:28)
[2020-07-29] MEDS: ASPIRIN 81MG TABLET PO SCH (10:36)
[2020-07-29] MEDS: HYDROCHLOROTHIAZIDE 25MG TABLET PO SCH (10:36)
[2020-07-29] MEDS: ENOXAPARIN 40MG/0.4ML SYR SUBCUT SCH (10:36)
[2020-07-29] MEDS: NIFEDIPINE XL 30MG TAB PO SCH (10:43)
[2020-07-29 14:37] VITALS: BP 130/86
[2020-07-29] MEDS: INSULIN GLARGINE UD 100 UNITS/ML SYR SUBCUT SCH (14:57)
[2020-07-29 18:37] VITALS: BP 114/57
[2020-07-29 20:00] VITALS: BP 110/72
[2020-07-30] VITALS: BP 126/72
[2020-07-30] MEDS: PIPERACILLIN/TAZOBACTAM 3.375 G in DEXT 5% WATER 100 ML IV SCH (00:27)
[2020-07-30] MEDS: HYDRALAZINE HCL 100MG TABLET PO SCH ×2 (00:28→06:00)
[2020-07-30] MEDS: INSULIN GLARGINE UD 100 UNITS/ML SYR SUBCUT SCH ×3 (00:33→22:43)
[2020-07-30] MEDS: INSULIN LISPRO 100 UNITS/ML SUBCUT SCH ×5 (00:33→21:00)
[2020-07-30 04:00] VITALS: BP 103/63
[2020-07-30] MEDS: BLOOD SUGAR DIAGNOSTIC STRIP TEST SCH ×4 (06:53→21:41)
[2020-07-30 09:19] VITALS: BP 92/56
[2020-07-30] MEDS: METFORMIN HCL 850MG TABLET PO SCH ×2 (11:31→17:55)
[2020-07-30] MEDS: ACETAMINOPHEN 325MG TABLET PO PRN (11:31)
[2020-07-30] MEDS: ASPIRIN 81MG TABLET PO SCH (11:31)
[2020-07-30] MEDS: HYDROCHLOROTHIAZIDE 25MG TABLET PO SCH (11:31)
[2020-07-30] MEDS: ALBUTEROL 6.7GM HFA INHALER ORI SCH ×4 (11:32→18:48)
[2020-07-30] MEDS: ENOXAPARIN 40MG/0.4ML SYR SUBCUT SCH (11:32)
[2020-07-30 12:48] VITALS: BP 120/74
[2020-07-30] MEDS: HYDRALAZINE HCL 50MG TABLET PO SCH ×2 (13:30→21:41)
[2020-07-30 17:08] VITALS: BP 117/70
[2020-07-30 20:00] VITALS: BP 105/74
[2020-07-30 20:02] LABS: BASOPHILS % 0.9 % (0.0-2.0); EOSINOPHILS % 1.3 % (0.0-5.0); HEMATOCRIT. 45.5 % (42.0-52.0); HEMOGLOBIN. 14.3 g/dL (14.0-18.0); LYMPHOCYTES % 12.4 % (20.0-50.0); MEAN CORPUSCULAR HEMOGLOBIN 26.8 pg (28.0-32.0); MEAN CORPUSCULAR VOLUME 84.9 fL (80.0-94.0); MEAN PLATELET VOLUME 8.7 fl (7.4-10.4); MONOCYTES % 7.6 % (2.0-8.0); NEUTROPHILS % 77.8 % (40.0-76.0); PLATELET 300 x1000/uL (130-400); RED BLOOD CELL COUNT 5.35 mill/uL (4.7-6.1); RED CELL DISTRIBUTION WIDTH 15.9 % (11.6-14.6)
[2020-07-30 20:35] LABS: CHLORIDE 105 mEq/L (98-107)
[2020-07-31] VITALS: BP 111/80
[2020-07-31] MEDS: ALBUTEROL 6.7GM HFA INHALER ORI SCH ×4 (02:03→18:24)
[2020-07-31 04:00] VITALS: BP 133/81
[2020-07-31] MEDS: ACETAMINOPHEN 325MG TABLET PO PRN (06:02)
[2020-07-31] MEDS: LORAZEPAM 1MG TABLET PO PRN (06:02)
[2020-07-31] MEDS: HYDRALAZINE HCL 50MG TABLET PO SCH ×3 (06:02→22:51)
[2020-07-31] MEDS: INSULIN LISPRO 100 UNITS/ML SUBCUT SCH ×4 (07:40→21:00)
[2020-07-31] MEDS: BLOOD SUGAR DIAGNOSTIC STRIP TEST SCH ×4 (08:09→21:12)
[2020-07-31 09:04] VITALS: BP 154/95
[2020-07-31] MEDS: METFORMIN HCL 850MG TABLET PO SCH ×2 (09:30→18:24)
[2020-07-31] MEDS: ASPIRIN 81MG TABLET PO SCH (09:30)
[2020-07-31] MEDS: HYDROCHLOROTHIAZIDE 25MG TABLET PO SCH (09:30)
[2020-07-31] MEDS: ENOXAPARIN 40MG/0.4ML SYR SUBCUT SCH (09:31)
[2020-07-31] MEDS: INSULIN GLARGINE UD 100 UNITS/ML SYR SUBCUT SCH ×2 (10:47→22:55)
[2020-07-31 11:59] VITALS: BP 136/80
[2020-07-31 16:57] VITALS: BP 136/82
[2020-08-01] VITALS: BP 123/76
[2020-08-01] MEDS: LORAZEPAM 2MG/ML CPJ IV PRN (00:33)
[2020-08-01] MEDS: ALBUTEROL 6.7GM HFA INHALER ORI SCH ×4 (02:36→19:01)
[2020-08-01 04:00] VITALS: BP 134/81
[2020-08-01] MEDS: HYDRALAZINE HCL 50MG TABLET PO SCH ×3 (06:57→21:24)
[2020-08-01] MEDS: BLOOD SUGAR DIAGNOSTIC STRIP TEST SCH ×4 (06:58→21:06)
[2020-08-01] MEDS: INSULIN LISPRO 100 UNITS/ML SUBCUT SCH ×4 (07:07→21:00)
[2020-08-01 08:00] VITALS: BP 118/79
[2020-08-01] MEDS: ASPIRIN 81MG TABLET PO SCH (09:12)
[2020-08-01] MEDS: METFORMIN HCL 850MG TABLET PO SCH ×2 (09:12→17:34)
[2020-08-01] MEDS: HYDROCHLOROTHIAZIDE 25MG TABLET PO SCH (09:12)
[2020-08-01] MEDS: ENOXAPARIN 40MG/0.4ML SYR SUBCUT SCH (09:12)
[2020-08-01] MEDS: INSULIN GLARGINE UD 100 UNITS/ML SYR SUBCUT SCH ×2 (11:11→21:07)
[2020-08-01] MEDS: ACETAMINOPHEN 325MG TABLET PO PRN (11:17)
[2020-08-01 12:00] VITALS: BP 124/79
[2020-08-01 16:00] VITALS: BP 120/73
[2020-08-01 20:00] VITALS: BP 125/84
[2020-08-02] VITALS: BP 130/80
[2020-08-02] MEDS: ALBUTEROL 6.7GM HFA INHALER ORI SCH ×4 (01:22→19:00)
[2020-08-02 04:00] VITALS: BP 114/82
[2020-08-02] MEDS: ACETAMINOPHEN 325MG TABLET PO PRN (04:32)
[2020-08-02] MEDS: HYDRALAZINE HCL 50MG TABLET PO SCH ×3 (05:44→22:13)
[2020-08-02] MEDS: BLOOD SUGAR DIAGNOSTIC STRIP TEST SCH ×4 (05:45→21:00)
[2020-08-02] MEDS: METFORMIN HCL 850MG TABLET PO SCH ×2 (05:45→17:54)
[2020-08-02] MEDS: INSULIN LISPRO 100 UNITS/ML SUBCUT SCH ×4 (05:47→21:00)
[2020-08-02 08:00] VITALS: BP 122/81
[2020-08-02] MEDS: ASPIRIN 81MG TABLET PO SCH (09:27)
[2020-08-02] MEDS: ENOXAPARIN 40MG/0.4ML SYR SUBCUT SCH (09:27)
[2020-08-02] MEDS: HYDROCHLOROTHIAZIDE 25MG TABLET PO SCH (09:27)
[2020-08-02] MEDS: INSULIN GLARGINE UD 100 UNITS/ML SYR SUBCUT SCH ×2 (10:00→22:00)
[2020-08-02 16:00] VITALS: BP 122/75
[2020-08-02 20:00] VITALS: BP 130/80
[2020-08-03] VITALS: BP 133/83
[2020-08-03] MEDS: ALBUTEROL 6.7GM HFA INHALER ORI SCH ×2 (01:48→06:05)
[2020-08-03 04:00] VITALS: BP 111/53
[2020-08-03] MEDS: ACETAMINOPHEN 325MG TABLET PO PRN (06:05)
[2020-08-03] MEDS: HYDRALAZINE HCL 50MG TABLET PO SCH ×3 (06:05→22:00)
[2020-08-03] MEDS: BLOOD SUGAR DIAGNOSTIC STRIP TEST SCH ×4 (07:37→21:00)
[2020-08-03 08:00] VITALS: BP 130/83
[2020-08-03] MEDS: HYDROCHLOROTHIAZIDE 25MG TABLET PO SCH (09:15)
[2020-08-03] MEDS: ASPIRIN 81MG TABLET PO SCH (09:15)
[2020-08-03] MEDS: METFORMIN HCL 850MG TABLET PO SCH (09:15)
[2020-08-03] MEDS: ENOXAPARIN 40MG/0.4ML SYR SUBCUT SCH (09:16)
[2020-08-03] MEDS: INSULIN LISPRO 100 UNITS/ML SUBCUT SCH ×4 (09:21→21:00)
[2020-08-03] MEDS: INSULIN GLARGINE UD 100 UNITS/ML SYR SUBCUT SCH ×2 (09:25→23:03)
[2020-08-03 12:00] VITALS: BP 116/89
[2020-08-03 16:00] VITALS: BP 139/86
[2020-08-03 20:00] VITALS: BP 105/84
[2020-08-04] VITALS: BP 120/74
[2020-08-04] MEDS: ACETAMINOPHEN 325MG TABLET PO PRN (03:51)
[2020-08-04 04:51] VITALS: BP 124/69
[2020-08-04] MEDS: HYDRALAZINE HCL 50MG TABLET PO SCH ×2 (05:43→13:20)
[2020-08-04] MEDS: LORAZEPAM 2MG/ML CPJ IV PRN (05:43)
[2020-08-04] MEDS: BLOOD SUGAR DIAGNOSTIC STRIP TEST SCH ×2 (07:20→13:15)
[2020-08-04] MEDS: INSULIN LISPRO 100 UNITS/ML SUBCUT SCH ×2 (07:50→13:31)
[2020-08-04 08:00] VITALS: BP 122/81
[2020-08-04] MEDS: ASPIRIN 81MG TABLET PO SCH (09:48)
[2020-08-04] MEDS: HYDROCHLOROTHIAZIDE 25MG TABLET PO SCH (09:48)
[2020-08-04] MEDS: METFORMIN HCL 850MG TABLET PO SCH (09:49)
[2020-08-04] MEDS: ALBUTEROL 6.7GM HFA INHALER ORI SCH ×2 (09:49→13:19)
[2020-08-04] MEDS: ENOXAPARIN 40MG/0.4ML SYR SUBCUT SCH (09:50)
[2020-08-04] MEDS: INSULIN GLARGINE UD 100 UNITS/ML SYR SUBCUT SCH (10:43)
[2020-08-04 12:00] VITALS: BP 131/86
[2020-08-04 16:00] VITALS: BP 130/80
[2020-08-04 17:09] VITALS: BP 130/80
[2020-08-04 17:34] LABS: BASOPHILS % 0.9 % (0.0-2.0); EOSINOPHILS % 2.6 % (0.0-5.0); HEMATOCRIT. 46.8 % (42.0-52.0); HEMOGLOBIN. 14.8 g/dL (14.0-18.0); MEAN CORPUSCULAR HEMOGLOBIN 26.8 pg (28.0-32.0); MEAN CORPUSCULAR VOLUME 84.5 fL (80.0-94.0); MEAN PLATELET VOLUME 8.6 fl (7.4-10.4); MONOCYTES % 9.9 % (2.0-8.0); NEUTROPHILS % 66.6 % (40.0-76.0); PLATELET 318 x1000/uL (130-400); RED BLOOD CELL COUNT 5.53 mill/uL (4.7-6.1); RED CELL DISTRIBUTION WIDTH 16.1 % (11.6-14.6)
[2020-08-04 17:49] LABS: CHLORIDE 104 mEq/L (98-107)
[2020-08-04 18:15] LABS: BG BASE EXCESS -0.3 mmol/L (-2.0-2.0); BG CARBOXYHEMOGLOBIN 1.5 % (0.5-1.5); BG DEOXYHEMOGLOBIN 6.6 % (0.0-5.0); BG FRACTION INSPIRED OXYGEN 32; BG HCO3 ACT 22.7 mmol/L (22.0-26.0); BG METHEMOGLOBIN 0.3 % (0.0-1.5); BG OXYGEN SATURATION 93.3 % (92.0-98.5); BG OXYHEMOGLOBIN 91.6 % (94.0-97.0); BG PCO2 32.7 mmHg (35.0-45.0); BG SAMPLE SITE RIGHT RADIAL; BG TOTAL HEMOGLOBIN 14.8 g/dL (12.0-18.0); BG VENT MODE NASAL CANNULA
== END 2020-08-04 18:15 | disposition home or self-care (01) | DRG 871 ==
LOC: ER 03:38 → MICUSO 05:20 → EDBEDREQTM 05:24 → EDBEDREQ 05:24 → 8WST 07-21 07:48 → 6WST 08-02 21:25 → 6EST 08-03 11:22
PROVIDERS: ADMIT Internal Medicine; ATTEND Internal Medicine
PROC: 5A09557 Assistance with Respiratory Ventilation, Greater than 96 Consecutive Hours, Continuous Positive Airway Pressure (ICD-10-PCS; principal; 2020-07-16)
DX: A41.89 Other specified sepsis (principal); U07.1 COVID-19; J12.89 Other viral pneumonia; J96.01 Acute respiratory failure with hypoxia; G93.41 Metabolic encephalopathy; I63.9 Cerebral infarction, unspecified; J44.0 Chronic obstructive pulmonary disease with (acute) lower respiratory infection; R65.20 Severe sepsis without septic shock; I11.0 Hypertensive heart disease with heart failure; I50.9 Heart failure, unspecified; E11.9 Type 2 diabetes mellitus without complications; B97.89 Other viral agents as the cause of diseases classified elsewhere; D69.6 Thrombocytopenia, unspecified; D72.810 Lymphocytopenia; E78.00 Pure hypercholesterolemia, unspecified; E78.5 Hyperlipidemia, unspecified; F41.9 Anxiety disorder, unspecified; N40.0 Benign prostatic hyperplasia without lower urinary tract symptoms; J45.909 Unspecified asthma, uncomplicated; F12.90 Cannabis use, unspecified, uncomplicated; D72.829 Elevated white blood cell count, unspecified; T38.0X5A Adverse effect of glucocorticoids and synthetic analogues, initial encounter; Y92.89 Other specified places as the place of occurrence of the external cause; Z79.891 Long term (current) use of opiate analgesic; Z79.899 Other long term (current) drug therapy; Z79.82 Long term (current) use of aspirin
CPT/HCPCS: 36415; 36600; 70551; 71045; 80048; 80053; 80061; 81003; 82375; 82550; 82553; 82728; 82805; 82962; 83036; 83605; 83615; 83735; 83880; 84100; 84145; 84439; 84443; 84484; 85025; 85027; 85379; 86140; 87426; 87635; 90732; 93005; 93306; 93880; 93970; 94640; 94660; 96374; 97162; 97166; 99291; A6261; C1893; J0456; J0696; J1100; J1650; J1815; J2060; J2543; J3490; J7040; J7060; A4315